=== PATIENT | male | born 1980 | race Caucasian/White ===

== ENCOUNTER 2020-10-20 19:56 | Emergency (ER) | payer SELFPAY ==
--- NOTE | 2020-10-20 20:25 | EDM.PDOC ---
ED HPI GENERAL MEDICAL PROBLEM - General Chief Complaint: Syncope Stated Complaint: [facility] Time Seen by Provider: 10/20/20 20:15 Source of Information: Reports: Patient, EMS. Denies: Old Records History Limitations: Reports: No Limitations - History of Present Illness INITIAL COMMENTS - FREE TEXT/NARRATIVE: 40 yo male from [facility] presents after a syncopal spell that occurred just after eating at a local restaurant. He had been fishing all day and not drinking a lot. Has passed out a couple times in his life before this. Vomited shortly after he passed out. Did have some alcohol at the restaurant. Feels better now. Here via EMS. Onset: Today, Sudden Onset Date: 10/20/20 Duration: Minutes: Location: Reports: Generalized Quality: Reports: Other (no pain) Severity: Moderate Improves with: Reports: Other (time) Worsens with: Reports: Other (? not drinking enough) Context: Reports: Other (See HPI) Associated Symptoms: Reports: Diaphoresis, Nausea/Vomiting, Syncope. 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, Other (see below) (none) - Related Data Allergies Allergy/AdvReac Type Severity Reaction Status Date / Time No Known Allergies Allergy Verified 10/20/20 20:03 Home Meds: Home Meds NK [No Known Home Meds] 10/20/20 [History] Past Medical History - Infectious Disease History Infectious Disease History: Reports: Chicken Pox - Past Surgical History HEENT Surgical History: Reports: Myringotomy w Tube(s), Tonsillectomy Musculoskeletal Surgical History: Reports: Other (See Below) Other Musculoskeletal Surgeries/Procedures:: finger surg Social & Family History - Tobacco Use Tobacco Use Status *Q: Never Tobacco User Second Hand Smoke Exposure: No - Caffeine Use Caffeine Use: Reports: Coffee - Alcohol Use Days Per Week of Alcohol Use: 7 Number of Drinks Per Day: 1 Total Drinks Per Week: 7 Date of Last Drink: 10/20/20 - Recreational Drug Use Recreational Drug Use: No ED ROS GENERAL - Review of Systems Review Of Systems: See Below Constitutional: Reports: No Symptoms HEENT: Reports: No Symptoms Respiratory: Reports: No Symptoms Cardiovascular: Reports: Lightheadedness Endocrine: Reports: No Symptoms GI/Abdominal: Reports: Nausea, Vomiting. Denies: Black Stool, Diarrhea, Melena : Reports: No Symptoms Musculoskeletal: Reports: No Symptoms Skin: Reports: Diaphoresis Neurological: Reports: No Symptoms Psychiatric: Reports: No Symptoms - Physical Exam Exam: See Below Exam Limited By: No Limitations General Appearance: Alert, WD/WN, No Apparent Distress Eye Exam: Bilateral Eye: Normal Inspection Ears: Normal External Exam, Normal Canal, Hearing Grossly Normal Nose: Normal Inspection, No Blood Throat/Mouth: Normal Inspection, Normal Lips, Normal Oropharynx, Normal Voice, No Airway Compromise Head Exam: Atraumatic, Normocephalic Neck: Normal Inspection Respiratory/Chest: No Respiratory Distress, Lungs Clear, Normal Breath Sounds, No Accessory Muscle Use Cardiovascular: Regular Rate, Rhythm, No Edema GI/Abdominal: Normal Bowel Sounds, Soft, Non-Tender, No Distention Neuro Exam (Abbreviated): Alert, Oriented, CN II-XII Intact, Normal Cognition, No Motor/Sensory Deficits Back Exam: Normal Inspection Extremities: Normal Inspection, Normal Range of Motion, Non-Tender, No Pedal Edema Psychiatric: Normal Affect, Normal Mood Skin Exam: Warm, Dry, Intact, Normal Color, No Rash Course - Vital Signs Last Recorded V/S: Last Vital Signs Temp 36.2 C 10/20/20 20:17 Pulse 60 10/20/20 20:51 Resp 14 10/20/20 20:51 BP 98/71 10/20/20 20:51 Pulse Ox 95 10/20/20 20:51 Orthostatic Blood Pressure [ 100/69 Standing] Orthostatic Blood Pressure [ 117/58 Sitting] Orthostatic Blood Pressure [ 110/60 Supine] - Orders/Labs/Meds Orders: Active Orders 24 hr Category Date Time Status Cardiac Monitoring [RC] .As Directed Care 10/20/20 20:42 Active Orthostatic Vital Signs [RC] ASDIRECTED Care 10/20/20 20:20 Active - Re-Assessments/Exams Free Text/Narrative Re-Assessment/Exam: 10/20/20 21:12 No symptoms during visit. Departure - Departure Time of Disposition: 21:12 Disposition: Home, Self-Care 01 Condition: Good Clinical Impression: Vasovagal syncope - Discharge Information *PRESCRIPTION DRUG MONITORING PROGRAM REVIEWED*: Not Applicable *COPY OF PRESCRIPTION DRUG MONITORING REPORT IN PATIENT KIERRA: Not Applicable Instructions: Syncope, [id number] Referrals: PCP,None [Primary Care Provider] - Forms: ED Department Discharge Additional Instructions: Drink enough fluids so that your urine is light yellow in color. If able, when you feel light-headed, lie down and put your feet up. Rest tonight. Recheck as needed. Sepsis Event Note (ED) - Evaluation Sepsis Screening Result: No Definite Risk - Focused Exam Vital Signs: Vital Signs Temp Pulse Resp BP Pulse Ox 10/20/20 20:51 60 14 98/71 95 10/20/20 20:17 36.2 C 60 16 120/79 100 10/20/20 20:08 36.2 C 60 16 120/79 100 - My Orders Last 24 Hours: My Active Orders 10/20/20 20:20 Orthostatic Vital Signs [RC] ASDIRECTED 10/20/20 20:42 Cardiac Monitoring [RC] .As Directed - Assessment/Plan Last 24 Hours: My Active Orders 10/20/20 20:20 Orthostatic Vital Signs [RC] ASDIRECTED 10/20/20 20:42 Cardiac Monitoring [RC] .As Directed
== END 2020-10-20 21:25 | disposition home or self-care (01) ==
LOC: JP.ED 19:56
DX: R55 Syncope and collapse (principal)
CPT/HCPCS: 99284